=== PATIENT | female | born 1950 | race Caucasian/White ===

== ENCOUNTER 2021-04-13 17:58 | Emergency (ER) | payer MEDICARE, OTHER | END 2021-04-13 21:30 | disposition home or self-care (01) | LOC: FB.ED 17:58 | DX: R33.9 Retention of urine, unspecified (principal); M25.562 Pain in left knee; E78.00 Pure hypercholesterolemia, unspecified; I10 Essential (primary) hypertension; E66.9 Obesity, unspecified; Z68.32 Body mass index [BMI] 32.0-32.9, adult; Z88.1 Allergy status to other antibiotic agents; Z87.891 Personal history of nicotine dependence | CPT/HCPCS: 51702; 81001; 87086; 99283-25 ==